=== PATIENT | female | born 1965 | race Caucasian/White ===

== ENCOUNTER 2021-01-25 12:01 | Emergency (ER) | payer OTHER ==
[2021-01-25 14:03] LABS: BASOPHIL 0.3 % (0-2); EOSINOPHIL 0.6 % (0-5); HCT 36.4 % (37.0-47.0); HGB 12.3 g/dl (12.5-16.0); LYMPHOCYTE 9.4 % (15-48); MCH 30.4 pg (25.0-31.0); MCHC 33.8 g/dL (32.0-36.0); MCV 89.9 fL (78.0-100.0); MONOCYTE 5.7 % (0-12); MPV 10.6 fL (6.0-9.5); NEUTROPHIL 83.7 % (41-80); NRBC 0; PLT 243 K/uL (150-400); RBC 4.05 M/uL (4.20-5.40); RDW 12.2 % (11.5-14.0); WBC 6.2 K/uL (4.0-10.5)
[2021-01-25 14:07] LABS: INR 1.09 (0.9-1.2); PROTHROMBIN TIME 13.4 SECONDS (11.4-13.6)
[2021-01-25 14:21] LABS: ALBUMIN 3.6 g/dL (3.4-5.0); BILIRUBIN - TOTAL 0.5 mg/dL (0.2-1.0); BUN/CREAT RATIO (CALC) 16.5 RATIO; CREATININE 0.85 mg/dL (0.51-0.95); GLOBULIN (CALCULATION) 2.8 g/dL; MAGNESIUM 2.1 mg/dL (1.8-2.4); POTASSIUM 3.6 mmol/L (3.5-5.1); TOTAL PROTEIN 6.4 g/dL (6.4-8.2)
[2021-01-25] MEDS ORDERED: NORCO 5-325 TA1 EACH PO ×3 (15:31→15:34)
[2021-01-28] MEDS ORDERED: ACETAMINOPHEN500 M1 PO (13:44)
[2021-02-02] MEDS ORDERED: PERCOCET 5-3251 EACH PO (07:47)
== END 2021-01-25 16:25 | disposition home or self-care (01) ==
LOC: FER 12:01
PROVIDERS: Nurse Practitioner Family
DX: S82.51XA Displaced fracture of medial malleolus of right tibia, initial encounter for closed fracture (principal); S82.431A Displaced oblique fracture of shaft of right fibula, initial encounter for closed fracture; R55 Syncope and collapse; M79.671 Pain in right foot; W19.XXXA Unspecified fall, initial encounter
CPT/HCPCS: 36415; 70450; 71045; 73590; 73630; 80053; 83735; 84484; 85025; 85610; 93005

== ENCOUNTER → 2021-02-02 | Day surgery (SDC) | payer OTHER ==
[~2021-02-02] MED LIST: ACETAMINOPHEN500 M1 PO; NORCO 5-325 TA1 EACH PO; PERCOCET 5-3251 EACH PO
== END | disposition home or self-care (01) ==
LOC: FAS 07:18
DX: S82.841A Displaced bimalleolar fracture of right lower leg, initial encounter for closed fracture (principal); W08.XXXA Fall from other furniture, initial encounter
CPT/HCPCS: 73600; 76000; C1713; J0690; J2250; J2704; J2795; J3010; J7120